=== PATIENT | female | born 1995 | race Caucasian/White ===

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

== ENCOUNTER 2019-01-05 22:11 | Emergency (ER) | payer OTHER ==
[~2019-01-05] VITALS: Ht 170.2 cm; Wt 105.5 kg
[2019-01-05 22:11] VITALS: BP 139/87
[2019-01-06] MEDS ORDERED: NORCO 5/325MG TABLET (BULK FOR ED) PO ONE
[2019-01-06] MEDS ORDERED: NORCO, ANEXSIA 5/325MG TABLET (HYDROcodone/ACETAMINOPHEN) PO ONE
--- NOTE | 2019-01-06 05:17 | REP ---
Clinical: Trauma. Technique: AP, lateral, bilateral oblique views of the left foot. Findings: Minimally angulated fractures at the metaphyseal head of the second through fifth metatarsal bones noted. Remainder examination appears normal. Impression: Transverse minimally angulated fractures through the distal metaphysis of the second through fifth metatarsal bones. Electronically Signed by Galdino Patten MD 01/06/2019 05:09 A
== END 2019-01-06 00:48 | disposition home or self-care (01) ==
LOC: M ED 22:11
DX: S92.322A Displaced fracture of second metatarsal bone, left foot, initial encounter for closed fracture (principal); S92.332A Displaced fracture of third metatarsal bone, left foot, initial encounter for closed fracture; S92.342A Displaced fracture of fourth metatarsal bone, left foot, initial encounter for closed fracture; S92.352A Displaced fracture of fifth metatarsal bone, left foot, initial encounter for closed fracture; W19.XXXA Unspecified fall, initial encounter; Y92.410 Unspecified street and highway as the place of occurrence of the external cause; Y93.K1 Activity, walking an animal; Y99.9 Unspecified external cause status